=== PATIENT | female | born 1945 | race Caucasian/White ===

== ENCOUNTER → 2017-02-10 15:58 | Outpatient (CLI) | payer MEDICARE, OTHER ==
[2015-12-17 12:11] VITALS: BMI 34.8
[~2017-02-10 15:58] MED LIST: ASPIRIN325 MG PO; FLUTICASONE PRO16 GM NS; LASIX40 MG PO; LORTAB 5/500 TA1 TA2 PO; MOBIC7.5 MG PO; NORCO 5/325 TAB1 TA1 PO; PRILOSEC20 MG PO; ZESTORETIC 20/11 TAB PO; ZESTORETIC 20/21 TAB PO
== END | disposition home or self-care (01) ==
LOC: D.MAMMO 13:45
DX: Z12.31 Encounter for screening mammogram for malignant neoplasm of breast (principal)

== ENCOUNTER → 2017-05-29 15:33 | Outpatient (CLI) | payer MEDICARE, OTHER ==
[2015-12-17 12:11] VITALS: BMI 34.8
== END | disposition home or self-care (01) ==
LOC: D.CT 15:33
DX: R55 Syncope and collapse (principal)

== ENCOUNTER 2017-12-07 10:30 | Emergency (ER) | payer MEDICARE, OTHER ==
[2015-12-17 12:11] VITALS: BMI 34.8
[2017-12-07 12:58] LABS: APPEARANCE CLEAR (CLEAR); BILIRUBIN NEGATIVE (NEGATIVE); COLOR STRAW (YELLOW); GLUCOSE NEGATIVE (NEGATIVE); KETONE NEGATIVE (NEGATIVE); NITRITE NEGATIVE (NEGATIVE); PROTEIN NEGATIVE (NEGATIVE); SPECIFIC GRAVITY 1.005 (1.005-1.020); UROBILINOGEN NORMAL (NORMAL)
== END 2017-12-07 15:46 | disposition home or self-care (01) ==
LOC: D.ER 10:30
PROVIDERS: Physician Assistant
DX: R10.9 Unspecified abdominal pain (principal)

== ENCOUNTER → 2017-12-28 16:34 | Outpatient (CLI) | payer MEDICARE, OTHER ==
[2015-12-17 12:11] VITALS: BMI 34.8
== END | disposition home or self-care (01) ==
LOC: D.LABREF 16:34
DX: M1A.0711 Idiopathic chronic gout, right ankle and foot, with tophus (tophi) (principal)

== ENCOUNTER → 2018-04-27 11:24 | Outpatient (CLI) | payer MEDICARE, OTHER ==
[~2018-04-27] VITALS: Ht 160 cm; Wt 84.5 kg
--- NOTE | ~2018-04-27 | HEMODYNAMI ---
PATIENT:URIEL SANTOS MEDICAL RECORD: [id number] : 45 LOCATION:[facility] ADMISSION DATE: 04/27/18 Generatedon:04/27/201814:18 Patient name: URIEL SANTOS Patient #: [id number] SSN: : 1945 Date of study: 04/27/2018 Page: Of Hemodynamic Procedure Report Patient Data Patient Demographics Procedure consent was obtained First Name: URIEL Gender: Female Last Name: TOM : 1945 [facility] Initial: VIKTOR Age: 73 year(s) Patient #: [id number] Race: Unknown Additional ID: [id number] Contact details [address]: [address] [place] [address] State: [place] City: [place] Zip code: [address] Past Medical History Allergies Allergen Reaction Date Comments Reported Other allergy 04/27/2018 PCN, PREDNISONE, SULFA, METHYLPREDNLSOLNE Admission Admission Data Admission Date: 04/27/2018 Admission Time: 11:24 Procedure Procedure Types Cath Procedure Diagnostic Procedure [facility] w/Coronaries Aortic Root Angiography Procedure Description Procedure Date Procedure Date: 04/27/2018 Procedure Start Time: 14:00 Procedure End Time: 14:18 Procedure Staff Name Function Vipul Reyes MD Performing Physician Cruz Cornejo RT Monitor Michelle Sainz RT Scrub Kalyan Elizabeth RN Nurse Lance Hicks RN Sap Basis Procedure Data Cath Procedure Fluoroscopy Diagnostic fluoroscopy Total fluoroscopy Time: 4.4 time: 4.4 min min Diagnostic fluoroscopy Total fluoroscopy dose: dose: 350.26 mGy 350.26 mGy Contrast Material Contrast Material Type Amount (ml) Isovue 300 88 Entry Location Entry Primary Successful Side Size Upsize Upsize Entry Closure Hawk ccessful Closure Location (Fr) 1 (Fr) 2 (Fr) Remarks Device Remarks Radial Right 6 Fr Mechanical artery Short Compression Estimated blood loss: 5 ml Diagnostic catheters Device Type Used For End Catheter Placement DIAGNOSTIC Algonquin 110cm 5 Procedure Fr catheter ([id number]) DIAGNOSTIC AR 2 MOD 5 Fr Procedure catheter ([id number]) DIAGNOSTIC Pigtail 5Fr Procedure catheter ([id number]) Procedure Complications No complications Procedure Medications Medication Administration Route Dosage 0.9% NaCl I.V. 100 ml Oxygen etCO2 Nasal cannula 2 l/min Heparin Flush Bag added to field 2 bags (1000units/500ml NS) Lidocaine 2% added to field 20 Radial Cocktail added to field 1 syringe (Verapomil 2mg/Nitro 400mcg/Heparin 1500units) Versed I.V. 2 mg Fentanyl I.V. 100 mcg Radial Cocktail I.A. 1 syringe (Verapomil 2mg/Nitro 400mcg/Heparin 1500units) Versed I.V. 1 mg Hemodynamics Rest Heart Rate: 73 (bpm) Pressure Samples Time Site Value (mmHg) Purpose Heart Use Rate(bpm) 14:05 LV 165/-7,12 Snapshot 85 14:06 AO 155/80(110) Pullback 92 14:06 LV 146/3,15 Pullback 92 Gradients Valve Time Site 1 Site 2 Mean SEP/DFP Peak To Heart Use (mmHg) (sec/min) Peak Rate (mmHg) (bpm) Aortic 14:06 LV AO 0 6 0 92 146/3,15 155/80(110) Calculations Valve P-P Mean Valve Index Valve Source Name Gradient Area Flow (cm2) Aortic 0 0 0 0 Snapshots Pre Cath Intra NCS Post Cath Vital Signs Time Heart Resp SPO2 etCO2 NIBP (mmHg) Rhythm Pain Sedation Rate (ipm) (%) (mmHg) Status Level (bpm) 14:02:20 71 18 94 37.4 133/74(0) NSR 0 (11) 10(A) , No pain 14:03:44 78 18 94 38.1 138/78(0) NSR 0 (11) 10(A) , No pain 14:06:18 90 12 96 41.1 152/106(122) NSR 0 (11) 10(A) , No pain 14:10:52 87 15 97 42.6 163/76(103) NSR 0 (11) 10(A) , No pain 14:15:31 93 15 98 39.6 154/78(117) NSR 0 (11) 10(A) , No pain Medications Time Medication Route Dose Verified Delivered Reason Notes Effectiveness by by 13:53:16 0.9% NaCl I.V. 100 ml Kalyan Kalyan Per Glenn Elizabeth physician RN RN 13:53:26 Oxygen etCO2 2 l/min Kalyan Kalyan Per Nasal Glenn Elizabeth physician cannula RN RN 13:53:37 Heparin Flush added 2 bags Kalyan Kalyan used for Bag to Lorigan Glenn procedure (1000units/500ml field RN RN NS) 13:53:51 Lidocaine 2% added 20ml Kalyan Kalyan for local to vial Lorigan Lorigan anesthetic field RN RN 13:54:01 Radial Cocktail added 1 Kalyan Kalyan used for (Verapomil to syringe Lorigan Yumkioigan procedure 2mg/Nitro field RN RN 400mcg/Heparin 1500units) 14:01:18 Versed I.V. 2 mg Kalyan Kalyan for sedation Glenn Elizabeth RN RN 14:01:27 Fentanyl I.V. 100 mcg Kalyan Kalyan for sedation Glenn Elizabeth RN RN 14:03:41 Radial Cocktail I.A. 1 Kalyan Viplu for (Verapomil syringe Glenn Reyes MD vasodilation 2mg/Nitro RN 400mcg/Heparin 1500units) 14:13:33 Versed I.V. 1 mg Kalyan Kalyan for sedation Glenn Elizabeth RN public affairs officer Log Time Note 13:32:03 Signed procedure consent form obtained from patient. 13:32:06 Time tracking: Regular hours (M-F 7:00 - 5:00) 13:32:11 Plan of Care:Hemodynamics will remain stable., Cardiac rhythm will remain stable., Comfort level will be maintained., Respiratory function will remain adequate., Patient/ family verbilizes understanding of procedure., Procedure tolerated without complication., Recovers from procedure without complications.. 13:32:26 H&P Date Dictated: 04/01/2018 Within 30 days and on chart., H&P Addendum completed by physician on day of procedure. (MUST COMPLETE FOR ALL OUTPATIENTS). 13:32:58 Patient allergic to Other allergyPCN, PREDNISONE, SULFA, METHYLPREDNLSOLNE 13:38:28 Lance Hicks RN sent for patient. Start room use. 13:41:35 Patient received from Pre/Post Procedure Room to CCL 3 Alert and oriented. Tansferred to table in Supine position. 13:41:36 Warm blankets applied, and rosa m hugger turned on for patient comfort. 13:41:37 Correct patient and procedure confirmed by team. 13:41:37 ECG and BP/O2 sat monitors applied to patient. 13:41:39 Pre-procedure instructions explained to patient. 13:41:39 Pre-op teaching completed and patient verbalized understanding. 13:41:40 Family in waiting room. 13:41:41 Patient NPO since Midnight. 13:41:43 Is the patient allergic to Iodine/contrast media? No. 13:53:16 0.9% NaCl 100 ml I.V. was administered by Kalyan Elizabeth RN; Per physician; 13:53:26 Oxygen 2 l/min etCO2 Nasal cannula was administered by Kalyan Elizabeth RN; Per physician; 13:53:37 Heparin Flush Bag (1000units/500ml NS) 2 bags added to field was administered by Kalyan Elizabeth RN; used for procedure; 13:53:51 Lidocaine 2% 20ml vial added to field was administered by Kalyan Elizabeth RN; for local anesthetic; 13:54:01 Radial Cocktail (Verapomil 2mg/Nitro 400mcg/Heparin 1500units) 1 syringe added to field was administered by Kalyan Elizabeth RN; used for procedure; 13:54:08 Vital chart was started 13:57:08 Is patient on blood thinner?No 13:57:09 Patient diabetic? No. 13:57:12 Previous problem with sedation/anesthesia? No ? 13:57:13 Snore? Yes 13:57:13 Sleep apnea? Yes 13:57:14 Deviated septum? No 13:57:15 Opens mouth fully? Yes 13:57:16 Sticks out tongue? Yes 13:57:18 Airway obstruction? No ? 13:57:19 Dentures? No ? 13:57:21 Modified Rasheed's test Ulnar < 7 seconds 13:57:23 Patient pain scale 0/10 ?. 13:57:30 IV patent on arrival in left antecubital with 0.9% NaCl at [facility]. 13:57:33 Lab results completed and on chart. 13:57:36 Right Radial & Right Groin area was prepped with chlora-prep and draped in sterile fashion 13:57:37 Alarms reviewed by R. N. 13:57:38 Sharps counted by scrub and verified by R.N. 13:57:41 Use device set Radial Dx or PCI 13:57:42 ACIST Syringe (35975) opened to sterile field. 13:57:42 Medline Cath Pack ([id number]) opened to sterile field. 13:57:43 Bag Decanter (2001S) opened to sterile field. 13:57:44 ACIST Hand Control (91458) opened to sterile field. 13:57:45 ACIST Manifold (86781) opened to sterile field. 13:57:45 Tegaderm 4 x 4 (1626W) opened to sterile field. 13:57:51 DIAGNOSTIC WIRE .035 260cm J wire (219439) opened to sterile field. 13:57:52 SHEATH 6Fr Prelude Radial ([id number]) opened to sterile field. 13:58:15 Baseline sample Acquired. 13:58:18 Rhythm: sinus rhythm 13:58:19 Full Disclosure recording started 13:58:22 Physician arrived 13:58:22 --------ALL STOP TIME OUT------ 13:58:22 Final Timeout: patient, procedure, and site verified with staff and physician. All members of the team are in agreement. 13:58:24 Right Radial & Right Groin site verified by team. 13:58:26 Physical assessment completed. ASA score P 2 - A patient with mild systemic disease as per Vipul Reyes MD. 13:58:28 Sedation plan: IV Moderate Sedation Medication:Versed, Fentanyl 14:00:39 Procedure started. 14:00:42 Local anesthetic to right radial artery with Lidocaine 2% by Vipul Reyes MD.INITIAL ACCESS ONLY 14:01:18 Versed 2 mg I.V. was administered by Kalyan Elizabeth RN; for sedation; 14:01:22 Zero performed for pressure channel P1 14:01:27 Fentanyl 100 mcg I.V. was administered by Kalyan Elizabeth RN; for sedation; 14:03:35 A 6 Fr Short sheath was inserted into the Right Radial artery 14:03:41 Radial Cocktail (Verapomil 2mg/Nitro 400mcg/Heparin 1500units) 1 syringe I.A. was administered by Vipul Reyes MD; for vasodilation; 14:03:44 A DIAGNOSTIC Algonquin 110cm 5 Fr catheter (054050) was advanced over the wire and used for Procedure. 14:04:55 Vital chart was stopped 14:04:59 Vital chart was started 14:05:22 LV hemodynamics recorded. 14:05:48 LV gram done using BIGGS 14:05:50 Injector settings: Ml/sec: 7, Volume: 15, 14:05:59 EF : 60 % 14:09:06 LCA angiography performed. 14:10:35 Catheter exchanged over wire. 14:11:17 A DIAGNOSTIC AR 2 MOD 5 Fr catheter ([id number]) was advanced over the wire and used for Procedure. 14:11:54 RCA angiography performed. 14:12:06 Catheter exchanged over wire. 14:12:17 A DIAGNOSTIC Pigtail 5Fr catheter ([id number]) was advanced over the wire and used for Procedure. 14:13:33 Versed 1 mg I.V. was administered by Kalyan Elizabeth RN; for sedation; 14:13:57 Aortic Root visualized 14:14:34 Catheter removed. 14:14:43 TR BAND Standard ([id number]) opened to sterile field. 14:14:55 Sheath removed intact; hemostasis achieved with Mechanical Compression to the Right Radial artery. 14:14:56 Procedure ended.(Physican Out) 14:15:37 Fluoroscopy time 04.40 minutes. 14:15:49 Fluoroscopy dose: 350.26 mGy 14:15:49 Flurop Dose total: 350.26 14:15:52 Contrast amount:Isovue 300 88ml. 14:15:54 Sharps counted by scrub and verified by R.N. 14:15:57 TR band inflated with 15cc of air. 14:15:58 Insertion/operative site no bleeding no hematoma. 14:16:02 Post Procedure Pulses reassessed and unchanged 14:16:04 Post-procedure physical assessment completed. ASA score P 2 - A patient with mild systemic disease as per Vipul Reyes MD. 14:16:07 Post procedure rhythm: unchanged. 14:16:11 Estimated blood loss: 5 ml 14:16:13 Post procedure instruction explained to patient.Patient verbalizes understanding. 14:16:13 Patient needs reinforcement of post procedure teaching. 14:17:04 Procedure type changed to Cath procedure, Diagnostic procedure, LHC, LHC w/Coronaries, Aortic Root Angiography 14:17:51 Procedure and supply charges have been captured, reviewed, submitted and are correct. 14:17:54 Procedure Complication : No complications 14:17:56 See physician's report for complete and final results. 14:17:59 Report given to Pre/Post Procedure Room. 14:18:01 Patient transfered to Pre/Post Procedure Room with Stretcher. 14:18:02 Procedure ended. 14:18:02 Full Disclosure recording stopped 14:18:11 End room use (Document Last) 14:18:59 Vital chart was stopped Device Usage Item Name Manufacture Quantity Catalog Number Hospital Part Current M inimal Lot# / Charge Number Stock Stock Serial# Code ACIST Syringe Acist 1 49201 345929 341222 622638 2 0 (55533) [employer] Inc Medline Cath Cardinal 1 [id number] 341191 79424 576252 5 Pack Health ([id number]) Bag Decanter Microtek 1 2001S 780188 29435 967322 5 (2001S) Medical Inc. ACIST Hand Acist 1 70712 659403 651179 038522 5 Control (19620) Medical [employer] Inc ACIST Manifold Acist 1 81684 608891 875277 446483 5 (05758) Medical Systems Inc Tegaderm 4 x 4 3M 1 1626W 035201 000657 045721 5 (1626W) DIAGNOSTIC WIRE St Blanco 1 723954 843684 008627 771851 3 0 .035 260cm J wire (979605) SHEATH 6Fr Merit 1 [id number] 644051 124090 034689 5 Prelude Radial Medical ([id number]) DIAGNOSTIC Terumo 1 40-1233 746206 059789 350627 5 Algonquin 110cm 5 Fr catheter (583229) DIAGNOSTIC AR 2 Cardinal 1 [id number] 145276 921253 148170 2 0 MOD 5 Fr Health catheter (799503G) DIAGNOSTIC Cardinal 1 [id number] 304151 403021 411407 5 Pigtail 5Fr Health catheter (110148Y) TR BAND Terumo 1 [id number] 713524 669535 765997 4 0 Standard ([id number]) Signature Audit [place] Stage Time Signature Unsigned Intra-Procedure 04/27/2018 Cruz Cornejo 2:18:51 PM RT(R) Signatures Monitor : Cruz Cornejo RT Signature : Date : Time : [address] [place] [address]
[~2018-04-27 11:24] MED LIST changes: +ALPHAGAN 0.2%5 ML EACH EYE; +LIVALO2 MG PO; +XALATAN 0.0052.5 ML EACH EYE; +ZYLOPRIM300 MG PO
[2018-04-27 12:20] VITALS: BP 156/78; Ht 160 cm; Wt 84.5 kg
[2018-04-27 12:31] LABS: BASOPHILS 0.3 % (0-2); EOSINOPHILS 1.6 % (0-7); HEMATOCRIT 33.5 % (36.0-48.0); IMMATURE GRANULOCYTES 0.2 % (0-5); LYMPHOCYTES 29.5 % (15-50); MCHC 32.8 g/dL (31.0-37.0); MCV 97.4 fL (80.0-100.0); MEAN PLATELET VOLUME 9.8 fL (7.4-10.4); MONOCYTES 6.8 % (2-11); NEUTROPHILS 61.6 % (40-80); PLATELET COUNT 210 10x3/uL (130-400); RBC 3.44 10x6/uL (4.00-5.40); RDW 13.6 % (11.5-14.5); WBC 6.2 10x3/uL (4.8-10.8)
[2018-04-27 12:44] LABS: ANION GAP 14.5 mmol/L (8-16); CALCIUM 9.1 mg/dL (8.5-10.1); CARBON DIOXIDE 28.7 mmol/L (21.0-32.0); CREATININE - SERUM 1.3 mg/dL (0.6-1.3); POTASSIUM - SERUM 4.2 mmol/L (3.5-5.1)
== END | disposition home or self-care (01) ==
LOC: D.CATH 11:24
PROVIDERS: Internal Medicine Cardiovascular Disease
DX: I25.119 Atherosclerotic heart disease of native coronary artery with unspecified angina pectoris (principal); I20.9 Angina pectoris, unspecified; Z95.5 Presence of coronary angioplasty implant and graft; Z01.812 Encounter for preprocedural laboratory examination

== ENCOUNTER 2018-08-19 06:14 | Emergency (ER) | payer MEDICARE, OTHER ==
[~2018-08-19] VITALS: Ht 160 cm; Wt 87.3 kg
[2018-08-19 06:19] VITALS: Ht 160 cm; Wt 87.3 kg
[2018-08-19] MEDS ORDERED: XANAX0.25 MG (06:20)
[2018-08-19] MEDS ORDERED: SOMA350 MG (06:21)
[2018-08-19] MEDS ORDERED: CIPRO500 MG PO (06:22)
[2018-08-19 06:49] LABS: BASOPHILS 0.1 % (0-2); HEMATOCRIT 34.2 % (36.0-48.0); HEMOGLOBIN 11.4 g/dL (12-16); IMMATURE GRANULOCYTES 0.2 % (0-5); LYMPHOCYTES 14.4 % (15-50); MCH 32.2 pg (26.0-34.0); MCHC 33.3 g/dL (31.0-37.0); MCV 96.6 fL (80.0-100.0); MEAN PLATELET VOLUME 9.7 fL (7.4-10.4); MONOCYTES 6.6 % (2-11); NEUTROPHILS 77.7 % (40-80); PLATELET COUNT 186 10x3/uL (130-400); RBC 3.54 10x6/uL (4.00-5.40); RDW 13.8 % (11.5-14.5)
[2018-08-19 07:10] LABS: ALBUMIN 3.6 g/dL (3.4-5.0); ALKALINE PHOSPHATASE 77 U/L (46-116); ALT (SGPT) 25 U/L (10-68); BILIRUBIN - TOTAL 0.25 mg/dL (0.2-1.3); CALC OSMOLALITY 284 mosm/kg (275-300); CALCIUM 8.6 mg/dL (8.5-10.1); CARBON DIOXIDE 31.5 mmol/L (21.0-32.0); CHLORIDE - SERUM 100 mmol/L (98-107); CREATININE - SERUM 1.6 mg/dL (0.6-1.3); GLUCOSE 132 mg/dL (74-106); POTASSIUM - SERUM 3.7 mmol/L (3.5-5.1); PROTEIN - SERUM 7.2 g/dL (6.4-8.2); SODIUM 138 mmol/L (136-145); UREA NITROGEN 31 mg/dL (7-18); eGFR NON AFRICAN AMERICAN 33 mL/min (90-120)
[2018-08-19 07:13] LABS: APTT 25.2 SECONDS (22.8-39.4); INR 0.97 (0.85-1.17); PROTIME 12.5 SECONDS (11.6-15.0)
[2018-08-19 07:13] LABS: APPEARANCE CLEAR (CLEAR); BACTERIA FEW /hpf (NONE SEEN); BILIRUBIN NEGATIVE (NEGATIVE); COLOR YELLOW (YELLOW); EPITHELIAL CELLS 0-5 /hpf (0-5); GLUCOSE NEGATIVE (NEGATIVE); KETONE NEGATIVE (NEGATIVE); NITRITE NEGATIVE (NEGATIVE); PROTEIN NEGATIVE (NEGATIVE); SPECIFIC GRAVITY 1.005 (1.005-1.020); UROBILINOGEN NORMAL (NORMAL); WHITE CELLS - URINE 0-5 /hpf (0-5)
[2018-08-19 07:14] LABS: MUCUS <1+ /lpf (NONE SEEN)
[2018-08-19 07:14] LABS: D-DIMER-QUANTITATIVE 0.64 ug/mLFEU (0.20-0.54)
[2018-08-19 07:20] LABS: AMYLASE - SERUM 100 U/L (25-115); CKMB 1.4 U/L (0.0-3.6); CREATINE KINASE 179 UL (21-215); LIPASE 188 U/L (73-393); MAGNESIUM - SERUM 1.7 mg/dL (1.8-2.4); TROPONIN-I < 0.017 ng/mL (0.000-0.060)
[2018-08-19 08:30] LABS: UDS - AMPHET NEGATIVE QUAL (NEGATIVE); UDS - BARB NEGATIVE QUAL (NEGATIVE); UDS - BENZO NEGATIVE QUAL (NEGATIVE); UDS - COCAINE NEGATIVE QUAL (NEGATIVE); UDS - OPIATE NEGATIVE QUAL (NEGATIVE); UDS - PCP NEGATIVE QUAL (NEGATIVE); UDS - THC NEGATIVE QUAL (NEGATIVE)
[2018-08-19 12:57] VITALS: BP 145/65
== END 2018-08-19 12:59 | disposition other institution (70) ==
LOC: D.ER 06:14
PROVIDERS: Family Medicine
DX: G40.909 Epilepsy, unspecified, not intractable, without status epilepticus (principal); R55 Syncope and collapse; M25.511 Pain in right shoulder; I10 Essential (primary) hypertension; I25.10 Atherosclerotic heart disease of native coronary artery without angina pectoris

== ENCOUNTER → 2019-03-17 10:33 | Outpatient (CLI) | payer MEDICARE, OTHER ==
[2018-08-19 06:19] VITALS: BMI 34.0
[~2019-03-17 10:33] MED LIST changes: +CIPRO500 MG PO; +SOMA350 MG; +XANAX0.25 MG
== END | disposition home or self-care (01) ==
LOC: D.MRI 10:33
PROVIDERS: ATTEND Family Medicine
DX: M54.2 Cervicalgia (principal)

== ENCOUNTER → 2019-03-31 16:58 | Outpatient (CLI) | payer MEDICARE, OTHER ==
[2018-08-19 06:19] VITALS: BMI 34.0
== END | disposition home or self-care (01) ==
LOC: D.MAMMO 11:00
PROVIDERS: ATTEND Family Medicine
DX: Z12.31 Encounter for screening mammogram for malignant neoplasm of breast (principal)

== ENCOUNTER → 2019-06-16 13:27 | Outpatient (CLI) | payer MEDICARE, OTHER ==
[2018-08-19 06:19] VITALS: BMI 34.0
== END | disposition home or self-care (01) ==
LOC: D.HCCARDIO 13:27
PROVIDERS: ATTEND Internal Medicine Cardiovascular Disease
DX: I35.8 Other nonrheumatic aortic valve disorders (principal)

== ENCOUNTER 2021-05-07 12:45 | Observation (INO) | payer MEDICARE, OTHER ==
[~2021-05-07] VITALS: Ht 160 cm; Wt 86.4 kg
[2021-05-07 12:58] VITALS: Ht 160 cm; Wt 86.4 kg
[2021-05-07 13:21] VITALS: BP 181/51
[2021-05-07 13:47] LABS: BASOPHILS 0.2 % (0-2); EOSINOPHILS 0.1 % (0-7); HEMATOCRIT 38.9 % (36.0-48.0); HEMOGLOBIN 13.5 g/dL (12-16); LYMPHOCYTES 8.1 % (15-50); MCH 32.3 pg (26.0-34.0); MCHC 34.7 g/dL (31.0-37.0); MCV 92.9 fL (80.0-100.0); MEAN PLATELET VOLUME 7.7 fL (7.4-10.4); MONOCYTES 3.5 % (2-11); NEUTROPHILS 88.1 % (40-80); RBC 4.18 10x6/uL (4.00-5.40); RDW 13.7 % (11.5-14.5); WBC 11.2 10x3/uL (4.8-10.8)
[2021-05-07 14:02] LABS: PLATELET COUNT 271 10x3/uL (130-400)
[2021-05-07 14:03] LABS: ALBUMIN 4.4 g/dL (3.4-5.0); ALKALINE PHOSPHATASE 58 U/L (30-120); ALT (SGPT) 32 U/L (10-68); BILIRUBIN - TOTAL 0.57 mg/dL (0.2-1.3); CALC OSMOLALITY 256 mosm/kg (275-300); CALCIUM 9.8 mg/dL (8.5-10.1); CREATINE KINASE 89 UL (21-215); CREATININE - SERUM 1.5 mg/dL (0.6-1.3); GLUCOSE 151 mg/dL (74-106); MAGNESIUM - SERUM 1.8 mg/dL (1.8-2.4); POTASSIUM - SERUM 3.4 mmol/L (3.5-5.1); SODIUM 123 mmol/L (136-145); UREA NITROGEN 28 mg/dL (7-18); eGFR NON AFRICAN AMERICAN 36 mL/min (90-120)
[2021-05-07 14:06] LABS: TROPONIN-I < 0.017 ng/mL (0.000-0.060)
[2021-05-07 14:08] LABS: CHLORIDE - SERUM 83 mmol/L (98-107)
--- NOTE | 2021-05-07 14:09 | NUR ---
LAB CALLED WITH A CRITICAL CHLORIDE ON PATIENT- LEVEL 83 DOCTOR NOTIFIED.
--- NOTE | 2021-05-07 16:45 | NUR ---
IN OUT CATH FOR ua- OBTAINED AND TAKEN TO LAB.
[2021-05-07 16:49] LABS: BILIRUBIN NEGATIVE (NEGATIVE); KETONE 1+ mg/dL (< 1+); NITRITE NEGATIVE (NEGATIVE); PH 6.5 (5.0-8.0); UROBILINOGEN NORMAL mg/dL (< 2)
--- NOTE | 2021-05-07 16:55 | NUR ---
PATIENT OUT OF BED AND AMBULATED TO BR.
--- NOTE | 2021-05-07 16:56 | NUR ---
LATE ENTRY - 9474 IN OUT CATH DONE URINE TO LAB
[2021-05-07 19:00] VITALS: BP 152/48
--- NOTE | 2021-05-07 19:20 | NUR ---
REPORT RECEIVED FROM LIAT GARCIA AND LIAT DWYER. PT IS AAO X3. DENIES CURRENT NAUSEA. ASKING FOR JELLO AND SPRITE, PT GIVEN BOTH PER REQUEST. CALL LIGHT WITHIN REACH OF PT. NAD NOTED, RESPIRATIONS EVEN AND NON LABORED. PT REPOSITIONED SELF IN BED, HOB RAISED FOR PT TO EAT AND DRINK.
[2021-05-07 20:00] VITALS: BP 144/59
[2021-05-07 21:00] VITALS: BP 138/52
--- NOTE | 2021-05-07 21:00 | NUR ---
PT STATES SHE HELD DOWN CIPRIANO AND DOC SUCCESSFULLY.
--- NOTE | 2021-05-07 21:25 | NUR ---
PT AMBULATED TO AND FROM RESTROOM X1 ASSIST. URINATED IN TOILET. REPOSITIONED IN BED AND CALL LIGHT WITHIN REACH. DENIES CURRENT NEEDS.
[2021-05-07 22:00] VITALS: BP 121/38
[2021-05-08] VITALS: BP 150/54
[2021-05-08 02:00] VITALS: BP 126/49
--- NOTE | 2021-05-08 03:20 | NUR ---
AMBULATED TO AND FROM RESTROOM WITH STEADY GAIT. PLACED BACK ON SOFTWARE DEPLOYMENT ENGINEER. CALL LIGHT WITHIN REACH. DENIES CURRENT NEEDS.
[2021-05-08 05:00] VITALS: BP 132/52
--- NOTE | 2021-05-08 06:00 | NUR ---
AMBULATED TO AND FROM RESTROOM WITH STEADY GAIT. STATES THAT SHE VOIDED URINE.
[2021-05-08 07:11] LABS: BASOPHILS 0.3 % (0-2); EOSINOPHILS 0.4 % (0-7); HEMATOCRIT 37.4 % (36.0-48.0); HEMOGLOBIN 12.8 g/dL (12-16); MCH 32.2 pg (26.0-34.0); MCHC 34.2 g/dL (31.0-37.0); MEAN PLATELET VOLUME 7.7 fL (7.4-10.4); MONOCYTES 8.1 % (2-11); NEUTROPHILS 72.2 % (40-80); PLATELET COUNT 271 10x3/uL (130-400); RBC 3.98 10x6/uL (4.00-5.40); RDW 13.2 % (11.5-14.5); WBC 8.9 10x3/uL (4.8-10.8)
[2021-05-08 07:13] LABS: ANION GAP 12.4 mmol/L (8-16); CALCIUM 8.8 mg/dL (8.5-10.1); CARBON DIOXIDE 28.8 mmol/L (21.0-32.0); CREATININE - SERUM 1.3 mg/dL (0.6-1.3); MAGNESIUM - SERUM 1.8 mg/dL (1.8-2.4); PHOSPHOROUS 2.9 mg/dL (2.5-4.9); POTASSIUM - SERUM 3.2 mmol/L (3.5-5.1)
--- NOTE | 2021-05-08 07:49 | HP ---
PATIENT: URIEL SANTOS MEDICAL RECORD: [id number] ACCOUNT: [id number] [facility] 45 ADMISSION DATE: 05/07/21 PCP: RUBINA SARAH MD HISTORY AND PHYSICAL EXAMINATION REASON FOR ADMISSION: Fainting episode. HISTORY OF PRESENT ILLNESS: The patient is a 76-year-old female who states she has had nausea with vomiting more than diarrhea for the last 2 days. She had felt weak for the last 24 hours, but no fever. She denied abdominal pain. She was standing at her sink facing her bird feeder and the last thing she knew her was waking her up on the floor. He found her lying on the kitchen floor, supine with her eyes opened up in her head, but no seizure activity or incontinence. The patient was unresponsive, initially did have a BM with a syncopal episode and she was out for several seconds and then became more oriented and responsive to him. Denies any neck pain, has a little bit of headache from her fall. She has had the same meals as her and he has had no issues. Potassium was low on admission. She is dehydrated. She is to be given fluids, but due to head trauma and sodium of 124, she is now being admitted for fluid hydration cautiously and neuro checks. PAST MEDICAL HISTORY: Cervical arthritis with chronic neck pain, spinal stenosis, remote Lyn's palsy resolved, osteoarthritis, mitral valve prolapse, CAD, history of bilateral carotid stenosis, post-carotid endarterectomies, KAYLA, obesity, hypertension, GERD, migraine headaches, remote depression. FAMILY HISTORY: Father had CAD, of DC. Mother had hairy cell leukemia and DC. One brother of neoplasm of the lung. SOCIAL HISTORY: She is . She is nonsmoker. SURGICAL HISTORY: Angiogram, left heart catheterization in 2012; carotid artery stent placement on the right and left in 2009 and 2010; ganglion cyst surgery, right wrist and hand in 1981; nasal surgery in 1979; history of glaucoma; PTCA times 1; KAYLA; mitral valve prolapse. ALLERGIES: CRESTOR, LOPID, LYRICA, NEURONTIN, PENICILLIN, PRAVACHOL, SIMVASTATIN, SULFA, ZOVIRAX. HOME MEDICINES: Indomethacin 50 mg p.o. t.i.d. p.r.n. gout flareups, meloxicam 15 mg daily, Livalo 4 mg p.o. at evening meal, lisinopril HCT 20/25 one q.a.m., Stryker 5/325 one at bedtime p.r.n. severe back pain, diclofenac topical gel t.i.d., Prilosec 20 mg a day. REVIEW OF SYSTEMS: GENERAL: She has been fatigued for the last 2 days. No fever. HEENT: No recent visual change, sinus congestion, or sore throat. Has a slight headache from her fall. RESPIRATORY: No SOB or cough. CARDIOVASCULAR: No palpitations, chest pain, claudication or increasing edema. GASTROINTESTINAL: Had nausea with vomiting, but more vomiting than diarrhea for the last 2 days. Denies melena or hematemesis. Denies fatty food intolerance. GENITOURINARY: Mild incontinence. GYNECOLOGICAL: No vaginal bleeding. ENDOCRINE: Denies polyuria, polydipsia, heat and cold intolerance. HISTORY AND PHYSICAL [id number] URIEL SANTOS NEUROLOGIC: No history of stroke, TIA, vascular headaches or seizures. Syncopal episode as mentioned above with mild incontinence of stool. PSYCHIATRIC: Admits to depressed mood. Clinically stable. PHYSICAL EXAMINATION: GENERAL: The patient is now alert post-hydration, complaining of mild headache, but totally oriented. VITAL SIGNS: Temperature 97.5 Fahrenheit, pulse 79 and regular, respirations 16, blood pressure 177/85 satting 97% on room air. The patient is alert and oriented. EYES: Clear. Pupils reactive. EOMI. SCALP: She has a small hematoma in her right occipital scalp without laceration. NECK: Limited range of motion which is chronic. Carotids; no bruits, no JVD. CHEST: Clear. HEART: Regular, without murmur. ABDOMEN: Obese, soft, nontender. No organomegaly or bruising noted. She is nontender. EXTREMITIES: She has 2+ bipedal edema, which is chronic. No bruising appreciated. NEUROLOGICAL: Oriented to person, place and time. Cranial nerves intact. GAIT: The patient can stand without difficulty. LABORATORY DATA: Shows a sodium of 123, potassium of 3.4, BUN and creatinine are 20 and 1.5. Cardiac enzymes are negative. H&H is 13.5 and 38.9 with a white count of 11.2 thousand. DIAGNOSTIC DATA: Chest x-ray shows normal lung markings. No rib fractures. CT of the head shows no acute territorial infarcts. No evidence of hemorrhage or mass. ASSESSMENT: 1. Syncopal episode, most likely due to intravascular volume depletion. 2. Gastroenteritis. 3. Hyponatremia. 4. Hypokalemia. 5. Essential hypertension; cervical arthritis; obstructive sleep apnea; obesity; history of coronary artery disease, clinically stable; history of carotid occlusive disease. PLAN: The patient will be admitted to observation for IV fluids, sodium replacement, and neuro checks. TRANSINT:[id number] Voice Confirmation ID: [id number] DOCUMENT ID: [id number] HISTORY AND PHYSICAL [id number] URIEL ASNTOS TIMOTHY MD at 0749 CC: [id number] DICTATION DATE: 05/07/21 171 CELERY STRIPPER: 05/07/21 1811 ADM IN [facility] [address] [place] [address]
[2021-05-08 07:58] VITALS: BP 133/48
--- NOTE | 2021-05-08 09:09 | NUR ---
PATIENT STATES FEELING BETTER THIS AM. IV CON'T ORDERED. TYLENOL GIVEN EARLIER FOR BACK PAIN SECONDARY TO LYING IN BED. AT BS.
[2021-05-08 12:22] VITALS: BP 139/48
--- NOTE | 2021-05-08 12:29 | NUR ---
PT ATE APPROXIMATELY 50% OF LUNCH TRAY- TOLERATED WITH SLIGHT NAUSEA- WILL MONITOR.
[2021-05-08] MEDS ORDERED: LISINOPRIL10 MG PO (13:08)
[2021-05-08] MEDS ORDERED: ZOFRAN4 MG PO (13:09)
[2021-05-08 14:51] VITALS: BP 139/48
--- NOTE | 2021-05-08 14:53 | NUR ---
ORDERS FOR DISCHARGE REC'D. PATIENT HAS TO WAIT ON HUSBANDS ARRIVAL FROM DOCTOR APPOINTMENT IN [place]. SL D/C'D. MONITOR REMOVED.
--- NOTE | 2021-05-08 14:54 | NUR ---
ORDERS REC'D FOR DISCHARGE. IV DC'D. MONITOR DC'D. PATIENT IS AWAITING HUSBANDS ARRIVAL FROM DOCTORS APPOINTMENT IN [place].
== END 2021-05-08 15:00 | disposition home or self-care (01) ==
LOC: D.ER 12:45 → OBSVTIME 16:43 → D.EDHOLD 16:43
PROVIDERS: Family Medicine; ADMIT Family Medicine; ATTEND Family Medicine
DX: R55 Syncope and collapse (principal); K52.9 Noninfective gastroenteritis and colitis, unspecified; E87.1 Hypo-osmolality and hyponatremia; E87.6 Hypokalemia; I10 Essential (primary) hypertension; G47.33 Obstructive sleep apnea (adult) (pediatric); E66.9 Obesity, unspecified; I25.10 Atherosclerotic heart disease of native coronary artery without angina pectoris